=== PATIENT | female | born 1935 | race Caucasian/White ===

== ENCOUNTER 2019-04-18 12:13 | Inpatient (IN) | payer MEDICARE, MEDICAID ==
[~2019-04-18] VITALS: Ht 154.9 cm; Wt 46.7 kg
[~2019-04-18 12:13] MED LIST: DIVAL250 PO; DONE5TAB7 PO; HALO2TAB PO; LORA10TA7 PO; MEMA10TA2 PO; SERT50TA PO; SITA50TA3 PO
[2019-04-18] MEDS ORDERED: SODIUM CHLORIDE 0.9% 1,000 ML IV ONE (12:48)
[2019-04-18 13:47] LABS: BASOPHILS % 0.6 % (0.0-2.0); EOSINOPHILS % 0.8 % (0.0-5.0); HEMATOCRIT. 37.4 % (36.0-48.0); HEMOGLOBIN. 12.7 g/dL (12.0-16.0); LYMPHOCYTES % 19.3 % (20.0-50.0); MEAN CORPUSCULAR HEMOGLOBIN 34.5 pg (28.0-32.0); MEAN CORPUSCULAR VOLUME 101.3 fL (81.0-99.0); MEAN PLATELET VOLUME 8.9 fl (7.4-10.4); MONOCYTES % 4.8 % (2.0-8.0); NEUTROPHILS % 74.5 % (40.0-76.0); PLATELET 240 x1000/uL (130-400); RED BLOOD CELL COUNT 3.69 mill/uL (4.2-5.4); RED CELL DISTRIBUTION WIDTH 13.8 % (11.6-14.6)
[2019-04-18 13:51] LABS: CHLORIDE 107 mEq/L (98-107)
[2019-04-18] MEDS ORDERED: ASPIRIN 325MG EC TABLET PO ONE ×2 (15:30→19:40)
[2019-04-18 16:34] LABS: INR 1.1; PARTIAL THROMBOPLASTIN TIME 22.4 sec (23.4-31.0); PROTHROMBIN TIME 10.9 sec (9.6-11.0)
[2019-04-18] MEDS ORDERED: DIPHENHYDRAMINE 50MG/ML VIAL IV PRN (17:30)
[2019-04-18] MEDS ORDERED: ONDANSETRON HCL 4MG/2ML INJ IV PRN (17:30)
[2019-04-18] MEDS ORDERED: CLONIDINE 0.1MG TABLET PO PRN (17:30)
[2019-04-18] MEDS ORDERED: NA PHOS,M-B/NA PHOS,DI-BA ENEMA 118ML PR PRN (17:30)
[2019-04-18] MEDS ORDERED: ACETAMINOPHEN 650MG SUPP PR PRN (17:30)
[2019-04-18] MEDS ORDERED: ACETAMINOPHEN 325MG TABLET PO PRN (17:30)
[2019-04-18] MEDS ORDERED: IPRATROPIUM/ALBUTEROL 0.5-3(2.5)MG/3ML NEB INH PRN (17:30)
[2019-04-18] MEDS ORDERED: HYDROCODONE/ACETAMINOPHEN 5/325MG TABLET PO PRN (17:30)
[2019-04-18] MEDS ORDERED: GUAIFENESIN 200MG/10ML SUGAR FREE UDC PO PRN (17:30)
[2019-04-18] MEDS ORDERED: LORAZEPAM 0.5MG TABLET PO PRN (17:30)
[2019-04-18] MEDS ORDERED: DOCUSATE SODIUM 100MG CAPSULE PO PRN (17:30)
[2019-04-18] MEDS ORDERED: MAGNESIUM/ALUMINUM HYDROXIDE/SIMETHICONE 30ML UDC PO PRN (17:30)
[2019-04-18] MEDS ORDERED: ASPIRIN 325MG TABLET PO ONE (20:15)
[2019-04-18 21:30] VITALS: BP 140/51
[2019-04-18] MEDS: DEXT 5%/0.45% NACL 1000ML 1,000 ML IV SCH (22:52)
[2019-04-19] VITALS: BP 145/60
[2019-04-19 01:40] LABS: CREATINE KINASE 107 IU/L (26-192); CREATINE KINASE MB FRACTION 1.7 ng/mL (0.5-3.6)
[2019-04-19 04:00] VITALS: BP 120/60
[2019-04-19 07:22] LABS: BASOPHILS % 0.6 % (0.0-2.0); EOSINOPHILS % 2.7 % (0.0-5.0); HEMOGLOBIN. 12.2 g/dL (12.0-16.0); LYMPHOCYTES % 32.1 % (20.0-50.0); MEAN CORPUSCULAR HEMOGLOBIN 35.3 pg (28.0-32.0); MEAN CORPUSCULAR VOLUME 100.9 fL (81.0-99.0); MEAN PLATELET VOLUME 7.8 fl (7.4-10.4); MONOCYTES % 6.2 % (2.0-8.0); NEUTROPHILS % 58.4 % (40.0-76.0); PLATELET 251 x1000/uL (130-400); RED BLOOD CELL COUNT 3.47 mill/uL (4.2-5.4); RED CELL DISTRIBUTION WIDTH 13.6 % (11.6-14.6)
[2019-04-19 07:46] LABS: CHLORIDE 111 mEq/L (98-107)
[2019-04-19 08:00] VITALS: BP 142/57
[2019-04-19 08:08] LABS: LDL CHOLESTEROL 83 mg/dL (5-100)
[2019-04-19 08:09] LABS: CREATINE KINASE 99 IU/L (26-192)
[2019-04-19 08:10] LABS: CREATINE KINASE MB FRACTION 2.2 ng/mL (0.5-3.6); HDL CHOLESTEROL 48 mg/dL (40-59); T4 FREE 1.24 ng/dL (0.76-1.46)
[2019-04-19] MEDS ORDERED: ENOXAPARIN 30MG/0.3ML SYR SUBCUT SCH (09:00)
[2019-04-19] MEDS ORDERED: FAMOTIDINE 20MG/2ML VIAL IV SCH (09:00)
[2019-04-19 12:00] VITALS: BP 115/50
[2019-04-19 16:57] LABS: CLARITY URINE CLOUDY (CLEAR); COLOR URINE YELLOW (YELLOW); KETONES URINE NEGATIVE (NEGATIVE); LEUKOCYTE ESTERASE URINE 3+ (NEGATIVE); NITRITE URINE NEGATIVE (NEGATIVE); OCCULT BLOOD URINE NEGATIVE (NEGATIVE); PH URINE 6.5 (4.5-8.0); PROTEIN URINE NEGATIVE (NEGATIVE)
[2019-04-19] MEDS: DEXT 5%/0.45% NACL 1000ML 1,000 ML IV SCH (18:06)
[2019-04-19 18:25] VITALS: BP 141/51
[2019-04-19] MEDS ORDERED: CEPHALEXIN 250MG CAPSULE PO SCH (21:00)
== END 2019-04-19 19:50 | disposition home or self-care (01) | DRG 48 ==
LOC: ER 12:13 → 8WST 16:18 → EDBEDREQ 16:21 → SUPCPDRO 17:19 → ENRESERV 19:52
PROVIDERS: ADMIT Internal Medicine; ATTEND Internal Medicine
DX: G90.8 Other disorders of autonomic nervous system (principal); E11.65 Type 2 diabetes mellitus with hyperglycemia; G30.9 Alzheimer's disease, unspecified; F02.80 Dementia in other diseases classified elsewhere, unspecified severity, without behavioral disturbance, psychotic disturbance, mood disturbance, and anxiety; F41.9 Anxiety disorder, unspecified; I10 Essential (primary) hypertension; N39.0 Urinary tract infection, site not specified; Z79.84 Long term (current) use of oral hypoglycemic drugs; Z79.899 Other long term (current) drug therapy
CPT/HCPCS: 36415; 71045; 80061; 81003; 82550; 82553; 82962; 83036; 83880; 84439; 84443; 84484; 87077; 87186; 93005; 93306; 93880; 93970; 96361; 96372; 96374; 97162; 99285; J1650; J3490; J7030